=== PATIENT | female | born 1985 | race Caucasian/White ===

== ENCOUNTER 2023-06-23 07:33 | Emergency (ER) | payer OTHER, SELFPAY ==
[2023-06-23 07:35] VITALS: BP 166/108
--- NOTE | 2023-06-23 08:22 | ED.GENMED ---
History of Present Illness
General
Chief Complaint: Urinary Symptoms
Source: patient
Exam Limitations: none
Time Seen by Provider: 06/23/23 07:58
Travel History
Have you had any contact with someone who has COVID-19?: No
Do you have any symptoms of coronavirus? Fever > 100 degrees, chills, cough, shortness of breath, sore throat, loss of taste or smell, muscle aches, or headache?: No
History of Present Illness
History of Present Illness:
37-year-old female presents with hematuria. She states most recently the blood in the urine resolved however she had had dark-colored bloody appearing urine over the past several days. She is thought to have a UTI and started on Macrobid. She was
on this for 5 days but stopped she felt like it was affecting her kidneys. She also complains of painful lump in the left upper arm. Concerned about DVT in her arm. She denies shortness of breath. She notes a slight lower back pain. No fevers.
She is currently on her menstrual cycle. No other complaints at this time.
Past History
Past History
ED Past Medical History: Other (cellulitis)
ED Past Surgical History: None
Social History
Tobacco: Non-smoker
Phy Exam
Physical Exam
Physical Exam:
General: Well-appearing anxious appearing female no acute respiratory distress
HEENT: Normocephalic atraumatic
Heart: Regular rate and rhythm no murmurs
Lungs: Clear to auscultation bilaterally no wheezing
Abdomen soft nontender nondistended no guarding or rebound normal bowel sound
Extremities: No cyanosis or edema. Palpable lymph node left upper medial arm.
Course
Orders/Labs/Results
Orders:
Orders
06/23/23 08:18
Venous Doppler Upr Ext Left [US Periph Venous UPPER Ext LT] Urgent
Comment:
Reason For Exam: swelling
06/23/23 08:19
CT Abd/pel Without Iv Or Oral Urgent
Comment:
Reason For Exam: hematuria
Test Result ONCE
06/23/23 08:29
CPK [Creatine Phosphokinase] Urgent
Complete Blood Count/With Diff Urgent
Comprehensive Metabolic Panel Urgent
HCG, Serum Qualitative Screen Urgent
Urinalysis Urgent
Date Specimen was Collected: 06/23/23
Time Specimen was Collected: 08:27
Urine Microscopic Urgent
Date Specimen was Collected: 06/23/23
Time Specimen was Collected: 08:27
Urine Culture Urgent
ELEONORA Source: Urine
Specimen Description:
Obtained by: [facility]
Date Specimen was Collected: 06/23/23
Time Specimen was Collected: 08:27
06/23/23 08:33
0.9% Sodium Chloride 1000 ml [Nss] 1,000 ml IV BOLUS
Abnormal Lab Results
06/23/23
08:29
Absolute Monos (auto) 0.9 H 10^3/uL
(0.1-0.6)
Monocytes % 9.5 H %
(1.7-9.3)
BUN 20 H mg/dl
(7-17)
Creatine Kinase 196 H U/L
(30-135)
Urine Occult Blood 1+ A
(Negative)
06/23/23 08:29
06/23/23 08:29
Vital Signs
Initial and Last Documented VS:
Initial Vital Signs
Temp Pulse Resp BP Pulse Ox
98.1 F 101 16 166/108 98
06/23/23 07:35 06/23/23 07:35 06/23/23 07:35 06/23/23 07:35 06/23/23 07:35
Last Documented Vital Signs
Temp Pulse Resp BP Pulse Ox
98.1 F 110 18 141/110 100
06/23/23 07:35 06/23/23 08:25 06/23/23 08:25 06/23/23 08:25 06/23/23 08:25
MDM/Problems Addressed
Differential Diagnosis Includes:
Patient presents with concerns of hematuria. Urine Does not look grossly bloody. Urinalysis and culture pending. Will check basic lab work. She also has painful swelling to left upper arm. No overlying skin changes do not suspect cellulitis.
Will check for DVT with ultrasound. CT of the abdomen pending as well
*Critical Care Note
Total Time (30-74mins, 75-104mins- exclusive of procedures): Not Applicable
Update Note
Update Note:
Workup here unremarkable other than for some hematuria on the microscopic analysis. There is inflammation of the proximal ureter on the right side that is just possibly recently passed stone. No fever white blood cell count is normal. Ultrasound
of left arm demonstrates lipomas but no DVTs. Recommend she follow-up with urology to ensure resolution of hematuria. Stable for discharge otherwise. Patient did say that she was not emptying her bladder completely however postvoid residual
showed 0 mL on the bladder scan
ED Attending Note
-
Portions of this chart may have been created with voice recognition software.� Occasional wrong word or��sound alike� substitutions may have occurred due to the inherent limitations of voice recognition software.
Discharge Plan
Departure
Patient Disposition: Home (Routine Discharge)
Date of Disposition: 06/23/23
Time of Disposition: 10:59
Patient with high blood pressure during this ER visit?: No
Discharge Problem:
Hematuria
Instructions: Blood in the Urine (Hematuria), Adult (DC)
Prescriptions:
No Action
nitrofurantoin macrocrystal 100 mg capsule
100 mg PO BID
Patient Comments:
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
Referrals:
NONE,* [Family Provider] -
Pee Siegel MD [Active] -
Activity Restrictions/Additional Instructions:
Stay hydrated. Please return here for worsening symptoms. Follow-up with urology for further evaluation
Interventions
Interventions:
*Risk Screen - Suicide Last Done: 06/23/23 08:11
*General Assessment Last Done: 06/23/23 08:11
*Neglect/Abuse Screening Last Done: 06/23/23 08:11
ED- Fall Risk Assessment Last Done: 06/23/23 08:11
*ED COVID-19 Vaccine History Last Done: 06/23/23 07:35
ED-Female Genitourinary Assessment Last Done: 06/23/23 08:11
Discharge Date and Time
Print Language: CHILEAN
[2023-06-23 08:25] VITALS: BP 141/110
[2023-06-23] MEDS: NSS 1000 IV (08:34)
[2023-06-23 08:39] LABS: % Basophils 1.1 % (0-2); % Eosinophils 3.4 % (0-6); % Immature Granulocytes 0.1 % (0-0.5); % Lymphocytes 25.1 % (20.5-51.1); % Monocytes 9.5 % (1.7-9.3); % Neutrophils 60.8 % (42.2-75.2); Absolute Basophils 0.1 10^3/uL (0-0.2); Absolute Eosinophils 0.3 10^3/uL (0-0.7); Absolute Lymphocytes 2.4 10^3/uL (1.2-3.4); Absolute Monocytes 0.9 10^3/uL (0.1-0.6); Absolute Neutrophils 5.8 10^3/uL (1.4-6.5); Hematocrit 38.2 % (37.0-47.0); Hemoglobin 13.2 g/dL (12.0-16.0); Mean Corp Hgb Conc. 34.6 g/dL (33.0-37.0); Mean Corpuscular Hgb 30.6 pg (27.0-31.0); Mean Corpuscular Volume 88.6 fL (81.0-99.0); Mean Platelet Volume 8.9 fL (7.4-10.4); Nucleated Red Blood Cells % 0 %; Platelet Count 292 10^3/uL (130-400); Red Blood Cell Count 4.31 10^6/uL (4.20-5.40); Red Cell Dist. Width 12.8 % (11.5-14.5); White Blood Cell Count 9.5 10^3/uL (4.8-10.8)
[2023-06-23 08:43] LABS: Urine Albumin Negative (Neg - Trace); Urine Bilirubin Negative (Negative); Urine Character Clear (Clear); Urine Color Yellow; Urine Glucose Negative (Negative); Urine Ketone Negative (Negative); Urine Leukocyte Negative (Negative); Urine Nitrite Negative (Negative); Urine Occult Blood 1+ (Negative); Urine Specific Gravity 1.025 (<1.030); Urine Urobilinogen Negative (Neg - 1+)
[2023-06-23 08:52] LABS: ALT (SGPT) 27 U/L (0-35); AST (SGOT) 30 U/L (14-36); Albumin 4.1 g/dl (3.5-5.0); Alkaline Phosphatase 70 U/L (38-126); Blood Urea Nitrogen 20 mg/dl (7-17); Calcium 9.4 mg/dl (8.4-10.2); Carbon Dioxide 25 mmol/L (22-30); Chloride 106 mmol/L (98-107); Creatine Phosphokinase 196 U/L (30-135); Estimated Creatinine Clearance 97 ml/min; Glucose 90 mg/dl (70-99); HCG, Serum Qualitative Screen Negative; Potassium 3.9 mmol/L (3.5-5.1); Sodium 136 mmol/L (135-145); Total Bilirubin 0.3 mg/dl (0.2-1.3); Total Protein 6.8 g/dl (6.3-8.2); eGFR > 60.00
[2023-06-23 09:14] LABS: Urine Mucus Few; Urine Squamous Cell >30 /LPF (Few)
[2023-06-23 09:15] LABS: Urine Red Blood Cell 0-2 /HPF (0-2); Urine White Cell 0-2 /HPF (0-5)
== END 2023-06-23 11:32 | disposition home or self-care (01) ==
LOC: EMR 07:33
PROVIDERS: Physician Assistant; EMERGENCY PHYSICIAN Emergency Medicine
DX: R31.9 Hematuria, unspecified (principal); M79.622 Pain in left upper arm
CPT/HCPCS: 99285; 96360; 74176; 80053; 81003; 81015; 82550; 84703; 85025; 87086; 93971

== ENCOUNTER 2023-10-27 20:24 | Emergency (ER) | payer OTHER, SELFPAY ==
[2023-10-27 20:34] VITALS: BP 144/98
[2023-10-27 21:11] LABS: % Basophils 0.9 % (0-2); % Eosinophils 3.8 % (0-6); % Immature Granulocytes 0.3 % (0-0.5); % Lymphocytes 27.4 % (20.5-51.1); % Neutrophils 60.6 % (42.2-75.2); Absolute Basophils 0.1 10^3/uL (0-0.2); Absolute Eosinophils 0.4 10^3/uL (0-0.7); Absolute Lymphocytes 2.7 10^3/uL (1.2-3.4); Absolute Monocytes 0.7 10^3/uL (0.1-0.6); Absolute Neutrophils 5.9 10^3/uL (1.4-6.5); Hematocrit 41.7 % (37.0-47.0); Hemoglobin 14.4 g/dL (12.0-16.0); Mean Corp Hgb Conc. 34.5 g/dL (33.0-37.0); Mean Corpuscular Hgb 30.4 pg (27.0-31.0); Mean Corpuscular Volume 88.2 fL (81.0-99.0); Mean Platelet Volume 8.9 fL (7.4-10.4); Nucleated Red Blood Cells % 0 %; Platelet Count 274 10^3/uL (130-400); Red Blood Cell Count 4.73 10^6/uL (4.20-5.40); Red Cell Dist. Width 12.6 % (11.5-14.5); Urine Albumin Negative (Neg - Trace); Urine Bilirubin Negative (Negative); Urine Character Clear (Clear); Urine Color Yellow; Urine Glucose Negative (Negative); Urine Ketone Negative (Negative); Urine Leukocyte Negative (Negative); Urine Nitrite Negative (Negative); Urine Occult Blood Negative (Negative); Urine Urobilinogen Negative (Neg - 1+); White Blood Cell Count 9.7 10^3/uL (4.8-10.8)
[2023-10-27 21:25] LABS: HCG, Serum Qualitative Screen Negative
[2023-10-27 21:28] LABS: ALT (SGPT) 29 U/L (0-35); AST (SGOT) 35 U/L (14-36); Albumin 4.1 g/dl (3.5-5.0); Alkaline Phosphatase 66 U/L (38-126); Blood Urea Nitrogen 16 mg/dl (7-17); Calcium 9.7 mg/dl (8.4-10.2); Carbon Dioxide 25 mmol/L (22-30); Chloride 105 mmol/L (98-107); Glucose 94 mg/dl (70-99); Potassium 4.1 mmol/L (3.5-5.1); Sodium 135 mmol/L (135-145); Total Bilirubin 0.6 mg/dl (0.2-1.3); Total Protein 6.6 g/dl (6.3-8.2); eGFR > 60.00
--- NOTE | 2023-10-27 23:17 | ED.GENMED ---
History of Present Illness
<Vikki Francisco MD, Resident - Last Filed: 10/28/23 01:09>
General
Chief Complaint: Fever
Time Seen by Provider: 10/27/23 22:53
History of Present Illness
History of Present Illness:
The patient is a 38 year old female presented to ER today complaining from vaginal discharge with odor and color change. She reported that she had a vaginal tampon about 2 weeks ago. She started to feel uncomfortable a few days ago and feeling like
she has fever. She started to have some discharge with odor from his vaginal area and got worsen. Today she went an urgent care and her vaginal tampon was removed there. A vaginal swab was done and the sample was sent for BV, yeast, trichomonosis
and mycoplasma.And her urine culture was sent by urgent care today. They told the patient to go ER for the possibility of having toxic shock. The patient reports that she still has brown discharge and burning sensation while urinating.
Medications: Itraconazole (scalp yeast),nitrofurantoin (UTI)
If applicable-neuro sx onset
Date of onset of symptoms: 10/27/23
Past History
<Vikki Francisco MD, Resident - Last Filed: 10/28/23 01:09>
Past History
ED Past Medical History: Other (cellulitis)
ED Past Surgical History: None
Social History
Tobacco: Non-smoker
Phy Exam
<Vikki Francisco MD, Resident - Last Filed: 10/28/23 01:09>
General Physical Exam
General Presentation: well appearing and no apparent distress
General Skin: warm
General Habitus: normal
General Mental: alert
General Hydration: appears well hydrated
Cardiovascular Exam
Cardiovascular Exam: regular rate/rhythm and no edema
Pulmonary Exam
Pulmonary Exam: lungs clear and no respiratory distress
Gastrointestinal Exam
Gastrointestinal Exam: soft
Genitourinary Exam Female
Exam Female: other (last period 2 weeks ago )
Course
<Vikki Francisco MD, Resident - Last Filed: 10/28/23 01:09>
Orders/Labs/Results
Orders:
Orders
10/27/23 20:39
Test Result ONCE
10/27/23 21:01
CMP [Comprehensive Metabolic Panel] Urgent
Complete Blood Count/With Diff Urgent
HCG, Serum Qualitative Screen Urgent
Urinalysis Urgent
Date Specimen was Collected: 10/27/23
Time Specimen was Collected: 20:39
Abnormal Lab Results
10/27/23
21:01
Absolute Monos (auto) 0.7 H 10^3/uL
(0.1-0.6)
10/27/23 21:01
10/27/23 21:01
Vital Signs
Initial and Last Documented VS:
Initial Vital Signs
Temp Pulse Resp BP Pulse Ox
97.8 F 96 22 144/98 100
10/27/23 20:34 10/27/23 20:34 10/27/23 20:34 10/27/23 20:34 10/27/23 20:34
Last Documented Vital Signs
Temp Pulse Resp BP Pulse Ox
97.8 F 85 18 109/62 99
10/27/23 20:34 10/27/23 23:52 10/27/23 23:52 10/27/23 23:52 10/27/23 23:52
<Funmilayo Sanderson DO - Last Filed: 10/27/23 23:43>
Orders/Labs/Results
Orders:
Orders
10/27/23 20:39
Test Result ONCE
10/27/23 21:01
CMP [Comprehensive Metabolic Panel] Urgent
Complete Blood Count/With Diff Urgent
HCG, Serum Qualitative Screen Urgent
Urinalysis Urgent
Date Specimen was Collected: 10/27/23
Time Specimen was Collected: 20:39
Abnormal Lab Results
10/27/23
21:01
Absolute Monos (auto) 0.7 H 10^3/uL
(0.1-0.6)
10/27/23 21:01
10/27/23 21:01
Vital Signs
Initial and Last Documented VS:
Initial Vital Signs
Temp Pulse Resp BP Pulse Ox
97.8 F 96 22 144/98 100
10/27/23 20:34 10/27/23 20:34 10/27/23 20:34 10/27/23 20:34 10/27/23 20:34
Last Documented Vital Signs
Temp Pulse Resp BP Pulse Ox
97.8 F 85 18 109/62 99
10/27/23 20:34 10/27/23 23:52 10/27/23 23:52 10/27/23 23:52 10/27/23 23:52
<Vikki Francisco MD, Resident - Last Filed: 10/28/23 01:09>
MDM/Problems Addressed
Differential Diagnosis Includes:
Toxic shock syndrome, STD, UTI
MDM/Problems Addressed:
CBC, CMP, Urinalysis were ordered and all are unremarkable. Follow up was recommended with PCP regarding culture results from urgent care
<Vikki Francisco MD, Resident - Last Filed: 10/28/23 01:09>
*Critical Care Note
Total Time (30-74mins, 75-104mins- exclusive of procedures): Not Applicable
ED Attending Note
<Vikki Francisco MD, Resident - Last Filed: 10/28/23 01:09>
-
Portions of this chart may have been created with voice recognition software.� Occasional wrong word or��sound alike� substitutions may have occurred due to the inherent limitations of voice recognition software.
<Funmilayo R. Sanderson, DO - Last Filed: 10/27/23 23:43>
ED Attending Note
Patient seen and examined by attending physician: Yes
I performed a history and physical exam of patient and discussed management with resident, I reviewed resident's note and agree with documented findings and plan of care.: Yes
ED Attending Note:
38-year-old woman with history of frequent UTIs, tinea capitis, anxiety presented to urgent care today with complaints of brownish vaginal discharge and mild dysuria. She was found to have retained tampon which may have been in place for the past 2
weeks. Tampon was removed uneventfully and patient states vaginal cultures and cultures for STI obtained. She states she was sent to the ED for further evaluation due to patient's concern for subjective fevers over the past 2 weeks however was not
noted to have a fever at urgent care nor fever upon arrival to the ED.
Last menstrual period 2 weeks ago, normal and on time.
She does admit to mild abdominal bloating but no nausea no vomiting, no diarrhea nor constipation. Normal bowel movement this morning. She does note intermittent dysuria and is chronically maintained on Macrobid for frequent UTIs. No back pain or
flank pain.
GENERAL: Alert , in no apparent distress. 38-year-old woman appears her stated age, bright and alert, pleasant, appears in no acute distress. Afebrile.
EYE: anicteric
NECK: Supple, nontender, no meningismus, no significant adenopathy.
ENT: oral mucosa is moist. No rhinorrhea.
CARDIAC: Regular rate and rhythm. no murmur.
LUNGS: Clear breath sounds bilaterally, no acute respiratory distress, no wheezes/rales/rhonchi
ABDOMEN: Soft, nondistended, without focal tenderness, no r/g, no cvat. normoactive BS.
NEUROLOGICAL: Alert and oriented x3, no focal neuro deficits. Gait is steady.
SKIN: Warm and dry, normal color, skin intact. No rash.
MUSCULOSKELETAL: No C/C/E. peripheral pulses are full and equal b/l. No palpable tenderness.
PSYCH: Normal and appropriate interaction.
Concern for potential bacterial vaginosis, STI, PID, ovarian cyst, UTI.
Labs overall reassuring, within normal limits, hCG is negative and urinalysis is crystal-clear.
Overall exam is benign without appreciable abdominal tenderness.
With reassuring labs, no significant abdominal tenderness, remains afebrile since arrival to the ED, nothing to signify PID.
Recommend holding off on antibiotics and instead will await cultures and STI testing performed by urgent care earlier today.
With reassuring unremarkable abdominal exam no indication for radiologic studies.
Prompt follow-up with PCP for recheck.
Return precautions discussed.
Discharge Plan
Departure
Patient Disposition: Home (Routine Discharge)
Date of Disposition: 10/27/23
Time of Disposition: 23:41
Patient with high blood pressure during this ER visit?: No
Discharge Problem:
Vaginal discharge
Prescriptions:
No Action
nitrofurantoin macrocrystal 100 mg capsule
100 mg PO BID
Patient Comments:
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
Referrals:
Fabiano Napoles MD [Family Provider] -
Activity Restrictions/Additional Instructions:
It was a pleasure meeting you and taking part in your care. We hope for your continued healing and wellness.
Please read discharge instructions in their entirety. However, they are for general education and may not describe your exact diagnosis at discharge. Information on your ER visit and medical conditions were discussed with you along with appropriate
follow up information...
If indicated, please take your medications as instructed and indicated on discharge paperwork.
Please schedule a follow up appointment as directed with your PCP with culture results. Call to schedule an appointment
Please return to the emergency department with ANY change in, persisting, or worsening of symptoms.� If any of your symptoms do not improve, or persist, or become more severe within 6-12 hours, please return to the emergency department for further
care.
Please return to the emergency department if you develop a headache, neck pain/stiffness, fever greater than 100.4F, chest pain, shortness of breath, persistent nausea, vomiting, slurred speech, difficulty walking, numbness/tingling, weakness, signs
of infection or any other symptoms that are worrisome to you.
Interventions
Interventions:
*Risk Screen - Suicide Last Done: 10/27/23 20:34
*General Assessment Last Done: 10/28/23 00:14
*Neglect/Abuse Screening Last Done: 10/27/23 20:34
ED- Fall Risk Assessment Last Done: 10/28/23 00:13
*ED COVID-19 Vaccine History Last Done: 10/28/23 00:13
*Nursing Disposition Last Done: 10/28/23 00:13
ED- Neurological Assessment Last Done: 10/27/23 23:44
Discharge Date and Time
Discharge Date/Time: 10/28/23 00:14
Print Language: TURKISH
[2023-10-27 23:52] VITALS: BP 109/62
== END 2023-10-28 00:14 | disposition home or self-care (01) ==
LOC: EMR 20:24
PROVIDERS: Student in an Organized Health Care Education/Training Program; EMERGENCY PHYSICIAN Emergency Medicine; FAMILY PHYSICIAN Family Medicine
DX: T19.2XXA Foreign body in vulva and vagina, initial encounter (principal); N89.8 Other specified noninflammatory disorders of vagina; W44.8XXA Other foreign body entering into or through a natural orifice, initial encounter
CPT/HCPCS: 99283; 80053; 81003; 84703; 85025

== ENCOUNTER 2024-01-01 17:47 | Emergency (ER) | payer OTHER, SELFPAY ==
[2024-01-01 17:50] VITALS: BP 161/112
--- NOTE | 2024-01-01 19:01 | ED.GENMED ---
History of Present Illness
General
Chief Complaint: Vaginal Bleeding
Source: patient
Exam Limitations: none
Time Seen by Provider: 01/01/24 18:41
History of Present Illness
History of Present Illness:
This is a 38 year old female that comes in with c/o bleeding in between periods. States that 3 days ago she has light pink bleeding. States that she feels bloated and has had heart burn. States that both of her grandmothers had ovarian cancer.
States that she does have urinary burning and that she had just completed Cipro and is not on Nitrofurantoin. Denies any fever, chills, chest pain, SOB, Nausea, vomiting, diarrhea, headache, dizziness.
Past History
Past History
ED Past Medical History: Asthma, Psychiatric (Anxiety) and Other (cellulitis, UTI, Tineas capitus, Migraines)
ED Past Surgical History: and Tonsilectomy
Social History
Tobacco: Former smoker
Alcohol: None
Personal:
Living: with family
Review of Systems
Review of Systems
All Other Systems: ROS reviewed and negative except as documented in HPI and ROS
Constitutional: Reports no symptoms; Denies fever or chills
EENT: Reports no symptoms
Respiratory: Reports no symptoms; Denies cough or trouble breathing
Cardiac: Denies chest pain
ABD/GI: Reports other (Feels bloated); Denies nausea, vomiting or diarrhea
: Reports dysuria and bleeding (in between her periods); Denies frequency or urgency
Musculoskeletal: Reports no symptoms
Skin: Reports no symptoms
Neurological: Reports no symptoms; Denies dizzy or headache
Psychiatric: Reports no symptoms
Phy Exam
General Physical Exam
General Presentation: well appearing and no apparent distress
General age: appears stated age
General Skin: warm and dry
General Habitus: normal
General Mental: alert
General Hydration: appears well hydrated
ENT Exam
ENT Exam: TM's normal, pharynx normal and neck supple
Eye Exam
Eye Exam: EOMI
Cardiovascular Exam
Cardiovascular Exam: regular rate/rhythm, no edema, no murmur and normal peripheral pulses
Pulmonary Exam
Pulmonary Exam: lungs clear, no respiratory distress, no rales, chest non tender, no crackles, no rhonchi, no wheezing and no cough
Gastrointestinal Exam
Gastrointestinal Exam: normal bowel sounds, non tender, soft, no organomegaly, no pulsatile mass and non distended
Musculoskeletal Exam
Musculoskeletal Exam: full ROM and no edema
Skin Exam
Skin Exam: normal color, warm/dry, no rash and no petechia
Psychiatric Exam
Psychiatric Exam: normal mood/affect
Course
Orders/Labs/Results
Orders:
Orders
01/01/24 19:00
Test Result ONCE
US Pelvis W Transvag Combined Urgent
Reason For Exam: Bleeding in between periods
01/01/24 19:06
Complete Blood Count/With Diff Urgent
Comprehensive Metabolic Panel Urgent
HCG, Serum Qualitative Screen Urgent
Urinalysis Reflex To Culture Urgent
Date Specimen was Collected: 01/01/24
Time Specimen was Collected: 19:04
Urine Microscopic Reflex Cult Urgent
01/01/24 19:08
0.9% Sodium Chloride 1000 ml [Nss] 1,000 ml IV BOLUS
Abnormal Lab Results
01/01/24
19:06
Absolute Monos (auto) 0.9 H 10^3/uL
(0.1-0.6)
Monocytes % 9.5 H %
(1.7-9.3)
BUN 18 H mg/dl
(7-17)
AST 38 H U/L
(14-36)
Leukocyte Esterase Rfl Trace A
(Negative)
Urine Bacteria (Reflex) Few A
(Negative)
01/01/24 19:06
01/01/24 19:06
Vital Signs
Initial and Last Documented VS:
Initial Vital Signs
Pulse Resp BP Pulse Ox
104 18 161/112 99
01/01/24 17:50 01/01/24 17:50 01/01/24 17:50 01/01/24 17:50
Last Documented Vital Signs
Temp Pulse Resp BP Pulse Ox
98 F 84 16 138/79 99
01/01/24 22:00 01/01/24 22:00 01/01/24 22:00 01/01/24 22:00 01/01/24 22:00
MDM/Problems Addressed
Differential Diagnosis Includes:
UTI, Abnormal vaginal bleeding
MDM/Problems Addressed:
This is a 38 year old female that comes in with c/o bleeding in between her periods. States that this was a light pink and she got nervous.
Will check labs, US, give IV fluids and Urine. Patient states that she just finished Cipro and was told to use Nitrofurantoin.
Back into see patient. Explained that her US is unremarkable. Her urine is negative for infection. Explained to patient that she need to follow up with the C[facility] and a urologist. Patient to return with any concerns.
Chronic conditions affecting care:
UTI
Acute Exacerbation and/or Progression of Chronic Illness:
UTi
*Radiology
Radiology exam reviewed: radiology read reviewed (US-Unremarkable sonographic appearance of the uterus and ovaries. )
*EKG
Interpreted by ED Provider?: NA
Rate: EKG- N/A
*Rhia Interpretation
Rate: Rhia- N/A
*Critical Care Note
Total Time (30-74mins, 75-104mins- exclusive of procedures): Not Applicable
ED Attending Note
-
Portions of this chart may have been created with voice recognition software.� Occasional wrong word or��sound alike� substitutions may have occurred due to the inherent limitations of voice recognition software.
Discharge Plan
Departure
Patient Disposition: Home (Routine Discharge)
Date of Disposition: 01/01/24
Time of Disposition: 22:29
Patient with high blood pressure during this ER visit?: Yes
Condition: Good
Covid-19: Not Applicable
Discharge Problem:
Abnormal uterine bleeding
Instructions: Bleeding Between Periods, BLOOD PRESSURE
Prescriptions:
No Action
nitrofurantoin macrocrystal 100 mg capsule
100 mg PO BID
Patient Comments:
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
Referrals:
Keith Naidu MD [Primary Care Provider] -
Jes Landaverde MD [Active] - Call in 1-3 days for appt
Amadou Roach MD [Active] - Call in 1-3 days for appt
Fabiano Napoles MD [Family Provider] -
Activity Restrictions/Additional Instructions:
As discussed, your blood work shows very slight Dehydration. Please increase our water intake to 8-8oz glasses daily. Your Urine is negative for infection. Your Ultrasound is normal. Please follow up with the CERT[facility]IED [facility] TE[facility] for further evaluation. You may
also want to see a Urologist due to your frequent urinary tract infection. IF YOU HAVE ANY OTHER CONCERNS PLEASE RETURN TO THE EMERGENCY ROOM.
Interventions
Interventions:
*Risk Screen - Suicide Last Done: 01/01/24 17:51
*General Assessment Last Done: 01/01/24 17:51
*Neglect/Abuse Screening Last Done: 01/01/24 17:51
ED- Fall Risk Assessment Last Done: 01/01/24 20:02
ED-Female Genitourinary Assessment Last Done: 01/01/24 20:02
Discharge Date and Time
Print Language: CONGOLESE
[2024-01-01] MEDS: NSS 1000 IV (19:10)
[2024-01-01 19:19] LABS: % Eosinophils 5.3 % (0-6); % Immature Granulocytes 0.3 % (0-0.5); % Lymphocytes 29.9 % (20.5-51.1); % Monocytes 9.5 % (1.7-9.3); Absolute Basophils 0.1 10^3/uL (0-0.2); Absolute Eosinophils 0.5 10^3/uL (0-0.7); Absolute Lymphocytes 2.8 10^3/uL (1.2-3.4); Absolute Monocytes 0.9 10^3/uL (0.1-0.6); Hematocrit 39.7 % (37.0-47.0); Hemoglobin 13.6 g/dL (12.0-16.0); Mean Corp Hgb Conc. 34.3 g/dL (33.0-37.0); Mean Corpuscular Hgb 29.7 pg (27.0-31.0); Mean Corpuscular Volume 86.7 fL (81.0-99.0); Mean Platelet Volume 8.6 fL (7.4-10.4); Nucleated Red Blood Cells % 0 %; Platelet Count 260 10^3/uL (130-400); Red Blood Cell Count 4.58 10^6/uL (4.20-5.40); Red Cell Dist. Width 12.9 % (11.5-14.5); Urine Albumin Negative (Neg - Trace); Urine Bilirubin Negative (Negative); Urine Character Clear (Clear); Urine Color Yellow; Urine Glucose Negative (Negative); Urine Ketone Negative (Negative); Urine Leukocyte Trace (Negative); Urine Nitrite Negative (Negative); Urine Occult Blood Negative (Negative); Urine Urobilinogen Negative (Neg - 1+); White Blood Cell Count 9.3 10^3/uL (4.8-10.8)
[2024-01-01 19:26] LABS: Urine Bacteria Few (Negative); Urine Mucus Few; Urine Red Blood Cell 0-2 /HPF (0-2); Urine Squamous Cell >30 /LPF (Few); Urine White Cell 0-2 /HPF (0-5)
[2024-01-01 19:42] LABS: ALT (SGPT) 29 U/L (0-35); AST (SGOT) 38 U/L (14-36); Albumin 4.2 g/dl (3.5-5.0); Alkaline Phosphatase 47 U/L (38-126); Blood Urea Nitrogen 18 mg/dl (7-17); Calcium 9.7 mg/dl (8.4-10.2); Carbon Dioxide 29 mmol/L (22-30); Chloride 102 mmol/L (98-107); Glucose 83 mg/dl (70-99); Potassium 4.4 mmol/L (3.5-5.1); Sodium 139 mmol/L (135-145); Total Bilirubin 0.6 mg/dl (0.2-1.3); Total Protein 6.8 g/dl (6.3-8.2); eGFR > 60.00
[2024-01-01 19:55] LABS: HCG, Serum Qualitative Screen Negative
[2024-01-01 20:00] VITALS: BP 144/68
[2024-01-01 22:00] VITALS: BP 138/79
== END 2024-01-01 22:37 | disposition home or self-care (01) ==
LOC: EMR 17:47
PROVIDERS: Clinical Nurse Specialist Family Health; EMERGENCY PHYSICIAN Emergency Medicine; FAMILY PHYSICIAN Family Medicine; PRIMARYCARE PHYSICIAN Internal Medicine
DX: N93.9 Abnormal uterine and vaginal bleeding, unspecified (principal); J45.909 Unspecified asthma, uncomplicated; Z80.41 Family history of malignant neoplasm of ovary; Z87.440 Personal history of urinary (tract) infections; Z87.891 Personal history of nicotine dependence
CPT/HCPCS: 99284; 96360; 76830; 76856; 80053; 81003; 81015; 84703; 85025

== ENCOUNTER 2024-03-16 09:38 | Emergency (ER) | payer OTHER, SELFPAY ==
[2024-03-16 09:40] VITALS: BP 154/102
--- NOTE | 2024-03-16 11:57 | ED.SKININJ ---
HPI-Injury
General
Chief Complaint: Eye Problems
Source: patient
Exam Limitations: none
Time Seen by Provider: 03/16/24 11:36
History of Present Illness-Injury
Initial Injury comments:
38 year old female presents with right eye discomfort. She states a light bulb broke and she thinks he might be a piece of glass in her eye. She notes light sensitivity. Is worse when she blinks. She also notes urinary symptoms. She was
diagnosed recently with Ureaplasma and was just given this resolved by the urgent care. She has not yet been prescribed an antibiotic for this. No other complaints at this time
Past History
Past History
ED Past Medical History: Asthma, Psychiatric (Anxiety) and Other (cellulitis, UTI, Tineas capitus, Migraines)
ED Past Surgical History: and Tonsilectomy
Social History
Tobacco: Former smoker
Alcohol: None
Personal:
Living: with family
Phy Exam
Physical Exam
Physical Exam:
General: Well-appearing female no acute respiratory distress
HEENT: Normocephalic atraumatic
Right eye examined with fluorescein stain and Little lamp. There is a corneal abrasion over the inferior portion of the cornea measuring 1 x 3 mm in the horizontal direction. There was a small foreign body noted that was not adhered to the surface
this was easily removed with a moistened cotton swab. The lids were then everted. There was no retained foreign bodies otherwise. The pupil is equal round and reactive no hyphema
Skin: Surrounding skin is without erythema fluctuance or induration
Heart: Regular rate and rhythm no murmurs
Lungs: Clear no wheeze or rales
Course
Vital Signs
Initial and Last Documented VS:
Initial Vital Signs
Temp Pulse Resp BP Pulse Ox
98.6 F 110 18 154/102 99
03/16/24 09:40 03/16/24 09:40 03/16/24 09:40 03/16/24 09:40 03/16/24 09:40
Last Documented Vital Signs
Temp Pulse Resp BP Pulse Ox
98.6 F 110 18 154/102 99
03/16/24 09:40 03/16/24 09:40 03/16/24 09:40 03/16/24 09:40 03/16/24 09:40
MDM/Problems Addressed
Differential Diagnosis Includes:
Right eye discomfort. Consider corneal abrasion versus foreign body. There was a foreign body that was easily removed but there is a corneal abrasion as well. Will start on gentamicin drops. Patient showed me the results on her portal from a
recent urine culture that shows Ureaplasma. She is not currently on a medicine for this but will prescribe doxycycline to cover.
*Critical Care Note
Total Time (30-74mins, 75-104mins- exclusive of procedures): Not Applicable
ED Attending Note
-
Portions of this chart may have been created with voice recognition software.� Occasional wrong word or��sound alike� substitutions may have occurred due to the inherent limitations of voice recognition software.
Discharge Plan
Departure
Patient Disposition: Home (Routine Discharge)
Date of Disposition: 03/16/24
Time of Disposition: 12:06
Patient with high blood pressure during this ER visit?: No
Discharge Problem:
Abrasion, corneal
Instructions: Corneal Abrasion (DC)
Prescriptions:
New
doxycycline hyclate 100 mg tablet
100 mg PO BID Qty: 14 0RF
No Action
nitrofurantoin macrocrystal 100 mg capsule
100 mg PO BID
Patient Comments:
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
Referrals:
Fabiano Napoles MD [Family Provider] -
Activity Restrictions/Additional Instructions:
Take antibiotics as directed. Use 1 drop right eye every 4 hours. Follow-up with eye doctor. Return if worse otherwise
Interventions
Interventions:
*Risk Screen - Suicide Last Done: 03/16/24 09:40
*General Assessment Last Done: 03/16/24 09:40
*Neglect/Abuse Screening Last Done: 03/16/24 09:40
*ED COVID-19 Vaccine History Last Done: 03/16/24 09:40
Discharge Date and Time
Print Language: GERMAN
[2024-03-16] MEDS: GENOPTIC 0.3% EYE DROPS 1 DROP OPHTH (12:28)
== END 2024-03-16 12:40 | disposition home or self-care (01) ==
LOC: EMR 09:38
PROVIDERS: EMERGENCY PHYSICIAN Emergency Medicine; FAMILY PHYSICIAN Family Medicine
DX: S05.01XA Injury of conjunctiva and corneal abrasion without foreign body, right eye, initial encounter (principal); X58.XXXA Exposure to other specified factors, initial encounter; J45.909 Unspecified asthma, uncomplicated; Z87.891 Personal history of nicotine dependence
CPT/HCPCS: 99283